=== PATIENT | male | born 2000 | race Caucasian/White ===

== ENCOUNTER 2019-09-10 20:38 | Emergency (ER) | payer OTHER ==
--- NOTE | 2019-09-10 20:42 | ED Physician Documentation ---
General Adult - HISTORIAN Historian: patient - HPI Stated Complaint: laceration to right thumb Chief Complaint: Laceration/Recheck/Suture Additional Information: Patient presents to ED with laceration to right thumb. Patient states he was pouring oatmeal out of a glass jar when it broke causing the laceration. Patient is up to date on tetanus. Onset: minutes (20) Timing: still present Severity: moderate - ROS CONST: no problems EYES/ENT: none CVS/RESP: none GI/: none MS/SKIN/LYMPH: none NEURO/PSYCH: denies: headache - PAST HX Past History: none Other History: none Surgeries/Procedures: none Immunizations: tetanus - SOCIAL HX Smoking History: non-smoker Alcohol Use: none Drug Use: none - FAMILY HX Family History: No - VITAL SIGNS Vital Signs: Vital Signs Temp Pulse Resp BP Pulse Ox 98.2 F 56 L 18 132/68 100 09/10/19 20:51 09/10/19 20:51 09/10/19 20:51 09/10/19 20:51 09/10/19 20:51 - REVIEWED ASSESSMENTS Nursing Assessment Reviewed: Yes Vitals Reviewed: Yes Procedures Wound Location: upper extremity (right thumb) Wound's Depth, Shape: linear, flap Wound Explored: clean Betadine Prep?: Yes Anesthesia: 1% Lidocaine Volume of Anesthetic: 15 Wound Debrided: minimal Wound Repaired With: sutures Suture Size/Type: 4:0 Number of Sutures: 8 Layer Closure?: No Deep Layer Suture Size/Type: 4:0 Sterile Dressing Applied?: Yes Splint Applied?: No Sling Applied?: No ED Results Lab/Radiology - Orders Orders: ED Orders Category Date Time Status Cleanse with NS and Chlorhexid 1T Care 09/10/19 20:49 Active Lidocaine 1% 5ml [Xylocaine] Med 09/10/19 21:02 Discontinued 50 mg IJ NOW ONE Lidocaine 1% 5ml [Xylocaine] Med 09/10/19 21:01 Discontinued 50 mg IM NOW ONE Lidocaine 1% 5ml [Xylocaine] Med 09/10/19 21:19 Discontinued 50 mg IM NOW ONE Lidocaine 1% 5ml [Xylocaine] Med 09/10/19 21:19 Discontinued 50 mg IM NOW ONE General Adult Physical Exam - PHYSICAL EXAM GENERAL APPEARANCE: no distress EENT: LENNY NECK: normal inspection RESPIRATORY: no resp distress, chest non-tender, breath sounds normal CVS: reg rate & rhythm, heart sounds normal ABDOMEN: soft, normal bowel sounds, non-tender BACK: normal inspection SKIN: warm/dry EXTREMITIES: non-tender, normal range of motion, other (3 cm laceration to right thumb) NEURO: oriented X3, mood/affect nml Discharge Clincal Impression: Laceration of thumb Qualifiers: Encounter type: initial encounter Damage to nail status: without damage Foreign body presence: without foreign body Laterality: right Qualified Code(s): S61.011A - Laceration without foreign body of right thumb without damage to nail, initial encounter Referrals: Min Greenwood MD [Primary Care Provider] - 2 Days Additional Instructions: 1. Wash laceration twice daily with antibacterial soap then apply triple antibiotic ointment 2. Keep covered if needed. Leave uncovered with sleep 3. Follow up with PCP in 7-10 days for suture removal 4. Return to ER for new or worsening symptoms Condition: Stable Disposition: 01 HOME, SELF-CARE Decision to Admit: NO Date of Decison to Admit: 09/10/19 Decision Time: 21:46
[2019-09-10 21:01] VITALS: BP 132/68
[2019-09-10] MEDS ORDERED: Lidocaine 1% 5ml 10 MG/ML VIAL IM ONE ×3 (21:01→21:19)
[2019-09-10] MEDS ORDERED: Lidocaine 1% 5ml 10 MG/ML VIAL IJ ONE (21:02)
== END 2019-09-10 22:00 | disposition home or self-care (01) ==
LOC: ED 20:38
DX: S61.011A Laceration without foreign body of right thumb without damage to nail, initial encounter (principal); W25.XXXA Contact with sharp glass, initial encounter
CPT/HCPCS: 12002; 96372; 99282; 99283